=== PATIENT | female | born 1960 | race Caucasian/White ===

== ENCOUNTER 2018-03-24 07:40 | Day surgery (SDC) | payer OTHER ==
[~2018-03-24 07:40] MED LIST: PROG100S VG
[2018-03-24] MEDS ORDERED: SIMETHICONE 40 MG/0.6 ML ML ONE (08:18)
[2018-03-24] MEDS: fentaNYL CITRATE/PF 100 MCG/2 ML AMP ONE ×4 (10:30→10:46)
[2018-03-24] MEDS: MIDAZOLAM HCL 5 MG/5 ML VIAL ONE ×5 (10:30→10:40)
[2018-03-24] MEDS ORDERED: ONDANSETRON HCL 4 MG/2 ML VIAL ONE (10:32)
[2018-03-24] MEDS ORDERED: DIPHENHYDRAMINE INJ 50 MG/ML VIAL ONE (11:12)
[2018-03-24 15:27] VITALS: BP_SYST 104
== END 2018-03-24 12:15 | disposition home or self-care (01) ==
LOC: MERGE 07:40 → SDS 07:40 → SMU 07:40 → SDS 12:15
PROVIDERS: ATTEND Internal Medicine Gastroenterology
DX: K64.8 Other hemorrhoids (principal); K29.50 Unspecified chronic gastritis without bleeding; Z79.899 Other long term (current) drug therapy; D64.9 Anemia, unspecified; J45.909 Unspecified asthma, uncomplicated; Z90.710 Acquired absence of both cervix and uterus; Z90.49 Acquired absence of other specified parts of digestive tract; Z98.890 Other specified postprocedural states; K21.0 Gastro-esophageal reflux disease with esophagitis
CPT/HCPCS: 36415; 43239; 45378; 87081; 88305; 88312; 88313; J1200; J2250; J2405; J3010